=== PATIENT | male | born 1980 | race Caucasian/White ===

== ENCOUNTER 2020-04-12 08:55 | Emergency (ER) | payer SELFPAY ==
[~2020-04-12] VITALS: Ht 190 cm; Wt 77.9 kg
[2020-04-12] MEDS ORDERED: LACTATED RINGERS 1,000 ML IV ONE (09:26)
[2020-04-12 09:36] LABS: BASOPHILS % (AUTO) 0 % (0-10); EOSINOPHILS # (AUTO) 0.1 10^3/uL (0.0-0.3); EOSINOPHILS % (AUTO) 1 % (0-10); HEMATOCRIT 26 % (40-54); LYMPHOCYTES # (AUTO) 1.3 X 10^3 (1.0-4.0); LYMPHOCYTES % (AUTO) 12 % (12-44); MEAN CORPUSCULAR HEMOGLOBIN 24 PG (25-34); MEAN CORPUSCULAR HGB CONC 31 G/DL (32-36); MEAN CORPUSCULAR VOLUME 76 FL (80-99); MEAN PLATELET VOLUME 8.8 FL (7.4-10.4); MONOCYTES # (AUTO) 1.2 X 10^3 (0.0-1.0); MONOCYTES % (AUTO) 12 % (0-12); NEUTROPHILS # (AUTO) 8.2 X 10^3 (1.8-7.8); NEUTROPHILS % (AUTO) 76 % (42-75); PLATELET COUNT 354 10^3/uL (130-400); RED CELL DISTRIBUTION WIDTH 15.5 % (10.0-14.5); WHITE BLOOD COUNT 10.8 10^3/uL (4.3-11.0)
[2020-04-12 09:47] LABS: ALBUMIN 3.8 GM/DL (3.2-4.5); CHLORIDE 95 MMOL/L (98-107); POTASSIUM 3.4 MMOL/L (3.6-5.0); SODIUM 133 MMOL/L (135-145)
[2020-04-12 09:48] LABS: CALCIUM 8.7 MG/DL (8.5-10.1)
[2020-04-12 09:49] LABS: GLUCOSE 128 MG/DL (70-105); TOTAL PROTEIN 6.8 GM/DL (6.4-8.2)
[2020-04-12 09:51] LABS: BILIRUBIN,TOTAL 0.3 MG/DL (0.1-1.0); CARBON DIOXIDE 29 MMOL/L (21-32)
--- NOTE | 2020-04-12 09:52 | ED Abdominal Pain ---
General Chief Complaint: Abdominal/GI Problems Stated Complaint: CONSTIPATION Nursing Triage Note: PT CO OF CONSTIPATION FOR APPROX 3 DAYS, STATES HAS EPIGASTRIC PAIN RATES 8/10. PT STATES HAS TAKES DULCOLAX 2 DAYS AGO W NO RESULTS. STATES IS STILL PASSING GAS Sepsis Screen: No Definite Risk Source of Information: Patient Exam Limitations: No Limitations History of Present Illness Date Seen by Provider: April 12, 2020 Time Seen by Provider: 09:18 Initial Comments Here with report of upper abdominal pain and no bowel movement for the last 3 d ays. States he feels full up the top and burping. Reports passing some flatus but minimal. Has history of cholecystectomy and appendectomy. No report of recent injury. Denies blood in his stool. Tried Dulcolax a few days ago and had no results. Never had anything like this before. Reports pain is cramping. Timing/Duration: 3-4 Days Severity/Quality: Moderate, Cramping Location: Epigastric, Generalized Abdomen Radiation: No Radiation Activities at Onset: None Modifying Factors: Worsens With Eating, Worsens With Movement Associated Symptoms: No Back Pain, No Chest Pain, No Fever/Chills; Fatigue; No Nausea/Vomiting, No Shortness of Air; Swelling/Mass in Abdomen; No Weakness Allergies and Home Medications Allergies Coded Allergies: No Known Drug Allergies (Unverified , 04/12/20) Home Medications No Active Prescriptions or Reported Meds Patient Home Medication List Home Medication List Reviewed: Yes Review of Systems Review of Systems Constitutional: see HPI; No chills, No fever EENTM: No Symptoms Reported Respiratory: No Symptoms Reported Cardiovascular: No Symptoms Reported Gastrointestinal: Abdominal Pain, Constipated; Denies Nausea, Denies Vomiting Genitourinary: No Symptoms Reported Musculoskeletal: no symptoms reported Skin: no symptoms reported Psychiatric/Neurological: No Symptoms Reported Past Kqvdahs-Oaejyo-Snodgz Hx Past Med/Social Hx: Reviewed Nursing Past Med/Soc Hx Patient Social History Alcohol Use: Rarely Uses Recreational Drug Use: Yes (pot) Smoking Status: Current Everyday Smoker Type Used: Cigarettes Recent Foreign Travel: No Contact w/Someone Who Travel: No Recent Infectious Disease Expo: No Recent Hopitalizations: No Physical Abuse: No Sexual Abuse: No Seasonal Allergies Seasonal Allergies: No Past Medical History Surgeries: Yes Appendectomy, Gallbladder Respiratory: No Cardiac: No Neurological: No Genitourinary: No Gastrointestinal: No Musculoskeletal: No Endocrine: No HEENT: No Cancer: No Psychosocial: No Integumentary: No Family Medical History Reviewed Nursing Family Hx No Pertinent Family Hx Physical Exam Vital Signs Vital Signs - First Documented 04/12/20 09:00 Temp 36.6 Pulse 94 Resp 18 B/P (MAP) 149/78 (101) Pulse Ox 100 Capillary Refill : Less Than 3 Seconds Height/Weight/BMI Height: '" Weight: lbs. oz. kg; 21.00 BMI Method: General Appearance: WD/WN, no apparent distress Neck: full range of motion, supple Respiratory: lungs clear, normal breath sounds Cardiovascular: regular rate, rhythm, no murmur Gastrointestinal: tenderness (globally) Rectal: heme negative stool; No hemorrhoids, No mass, No tenderness; other (no stool ball noted in the distal rectum. Distal rectum completely empty.) Extremities: non-tender, normal inspection Back: normal inspection, no CVA tenderness, no vertebral tenderness Neurologic/Psychiatric: alert, oriented x 3 Skin: normal color, warm/dry Progress/Results/Core Measures Results/Orders Lab Results Laboratory Tests Test 04/12/20 09:30 Range/Units White Blood Count 10.8 4.3-11.0 10^3/uL Red Blood Count 3.36 L 4.35-5.85 10^6/uL Hemoglobin 8.0 L 13.3-17.7 G/DL Hematocrit 26 L 40-54 % Mean Corpuscular Volume 76 L 80-99 FL Mean Corpuscular Hemoglobin 24 L 25-34 PG Mean Corpuscular Hemoglobin Concent 31 L 32-36 G/DL Red Cell Distribution Width 15.5 H 10.0-14.5 % Platelet Count 354 130-400 10^3/uL Mean Platelet Volume 8.8 7.4-10.4 FL Neutrophils (%) (Auto) 76 H 42-75 % Lymphocytes (%) (Auto) 12 12-44 % Monocytes (%) (Auto) 12 0-12 % Eosinophils (%) (Auto) 1 0-10 % Basophils (%) (Auto) 0 0-10 % Neutrophils # (Auto) 8.2 H 1.8-7.8 X 10^3 Lymphocytes # (Auto) 1.3 1.0-4.0 X 10^3 Monocytes # (Auto) 1.2 H 0.0-1.0 X 10^3 Eosinophils # (Auto) 0.1 0.0-0.3 10^3/uL Basophils # (Auto) 0.0 0.0-0.1 10^3/uL Sodium Level 133 L 135-145 MMOL/L Potassium Level 3.4 L 3.6-5.0 MMOL/L Chloride Level 95 L 98-107 MMOL/L Carbon Dioxide Level 29 21-32 MMOL/L Anion Gap 9 5-14 MMOL/L Blood Urea Nitrogen 13 7-18 MG/DL Creatinine 0.83 0.60-1.30 MG/DL Estimat Glomerular Filtration Rate > 60 BUN/Creatinine Ratio 16 Glucose Level 128 H 70-105 MG/DL Calcium Level 8.7 8.5-10.1 MG/DL Corrected Calcium 8.9 8.5-10.1 MG/DL Magnesium Level 2.4 1.6-2.4 MG/DL Total Bilirubin 0.3 0.1-1.0 MG/DL Aspartate Amino Transf (AST/SGOT) 411 H 5-34 U/L Alanine Aminotransferase (ALT/SGPT) 262 H 0-55 U/L Alkaline Phosphatase 199 H 40-136 U/L C-Reactive Protein High Sensitivity 0.47 0.00-0.50 MG/DL Total Protein 6.8 6.4-8.2 GM/DL Albumin 3.8 3.2-4.5 GM/DL Lipase 29 8-78 U/L My Orders Orders - JAIDA GLEASON MD Cbc With Automated Diff (04/12/20 09:26) Comprehensive Metabolic Panel (04/12/20 09:26) Hs C Reactive Protein (04/12/20 09:26) Lipase (04/12/20 09:26) Magnesium (04/12/20 09:26) Ed Iv/Invasive Line Start (04/12/20 09:26) Lactated Ringers (Lr 1000 Ml Iv Solution (04/12/20 09:26) Ct Abdomen/Pelvis W (04/12/20 09:26) Iohexol Injection (Omnipaque 350 Mg/Ml 1 (04/12/20 10:00) Received Contrast (Hold Metformin- Contr (04/12/20 10:00) Ns (Ivpb) (Sodium Chloride 0.9% Ivpb Bag (04/12/20 10:00) Pantoprazole Injection (Protonix Injecti (04/12/20 10:46) Lidocaine 2% Viscous 15 Ml (Xylocaine Vi (04/12/20 11:00) Antacid Suspension (Mylanta Suspension (04/12/20 11:00) Medications Given in ED Current Medications Medications Dose Ordered Sig/Crystal Route Start Time Stop Time Status Last Admin Dose Admin Al Hydrox/Mg Hydrox/Simethicone 30 ml ONCE ONCE PO 04/12/20 11:00 04/12/20 11:01 DC 04/12/20 11:04 30 ML Iohexol 100 ml ONCE ONCE IV 04/12/20 10:00 04/12/20 10:01 DC 04/12/20 10:03 98 ML Lactated Ringer's 1,000 ml @ 0 mls/hr Q0M ONCE IV 04/12/20 09:26 04/12/20 09:29 DC 04/12/20 09:34 1,000 MLS/HR Lidocaine HCl 15 ml ONCE ONCE PO 04/12/20 11:00 04/12/20 11:01 DC 04/12/20 11:04 15 ML Pantoprazole 40 mg STK-MED ONCE .ROUTE 04/12/20 10:46 04/12/20 10:53 DC 04/12/20 10:55 40 MG Sodium Chloride 100 ml ONCE ONCE IV 04/12/20 10:00 04/12/20 10:01 DC 04/12/20 10:04 80 ML Vital Signs/I&O 04/12/20 09:00 Temp 36.6 Pulse 94 Resp 18 B/P (MAP) 149/78 (101) Pulse Ox 100 Blood Pressure Mean: 101 Fecal Occult: Negative Progress Progress Note : Progress Note Seen and evaluated. Initially considered just doing x-ray but story is more concerning and no stool ball noted and distal rectum. We will DC x-ray and moved to labs and CT abdomen and pelvis. LR 1 L bolus. Monitor patient. 1107: CT complete. Findings of esophagitis and concerns of ileus noted. No obvious mass. I did discuss the case with Dr. Blount and we had intended on admitting the patient with possible upper and lower endoscopy to follow. Patient initially was accepting but then declined admission. Apparently his daughters mother was recently killed in a car accident a few days ago and his daughter is with him. He does admit to chewing tobacco and swallowing. This may be the cause of the esophagitis and stomach irritation. That is the cause of his low hemoglobin. That being said that there is still concerns for possible cancer risk and he needs endoscopy to evaluate for more persistent bleeding. Since he does not want to stay, he will sign AMA paperwork but I did discuss all of this with Dr. Blount. We will initiate clear liquid diet as well as omeprazole OTC and sucralfate prescription. He was instructed to follow-up with Dr. Blount in clinic on Tuesday or Tuesday and clear liquid diet for the next 3 days. He was also instructed to return for any concerns. I did discuss my concerns with him with regard to low hemoglobin and concerns for cancer as a possible diagnosis. Patient verbalize understanding. He was appreciative of care but states right now he just cannot stay due to the other factors in his life relating to his daughter. He was given Protonix 40 mg IV and GI cocktail. It did discuss at length with him regarding discharge instructions which he verbalized understan ding of. Patient states he will return if he gets any worse at all or if he just changes his mind. Diagnostic Imaging Diagonstic Imaging: CT Plain Films/CT/US/NM/MRI: abdomen, pelvis Comments [facility] [place], [place] NAME: AUSTIN BRENNAN [facility] REC#: [id number] PT STATUS: REG ER : 1980 PHYSICIAN: JAIDA GLEASON MD ADMIT DATE: 04/12/20/ER Draft Date of Exam:04/12/20 CT ABDOMEN/PELVIS W PROCEDURE: CT abdomen and pelvis with contrast. TECHNIQUE: Multiple contiguous axial images were obtained through the abdomen and pelvis after administration of intravenous contrast. Auto Exposure Controls were utilized during the CT exam to meet ALARA standards for radiation dose reduction. INDICATION: Abdominal pain, constipation, and epigastric pain. COMPARISON: None FINDINGS: The lung bases are clear. There is abnormal thickening of the visualized distal esophagus which could represent reflux disease. Moderate constipation is present without overt obstruction. Nonspecific fluid-filled loops of small bowel are present which could be seen with enteritis. Prominent small bowel loops are seen in the left upper quadrant possibly ileus. Please correct clinically. The gallbladder and appendix are surgically absent. Solid organs and vascular structures are normal. There is no free air or free fluid. Distal ureters and urinary bladder are normal. There is no hernia. Osseous structures are age-appropriate. IMPRESSION: 1. Abnormal thickening of the visualized distal esophagus. Direct visualization recommended on a nonemergent basis. 2. Surgically absent gallbladder and appendix. 3. Constipation without overt obstruction. 4. Nonspecific fluid-filled loops of small bowel which may be seen with enteritis. Questionable left upper quadrant small bowel ileus. Please correlate clinically. Dictated on workstation # [id number] Dict: 04/12/20 1018 Trans: 04/12/20 1025 [facility] [id number] Interpreted by: ERINN MEAD Electronically signed by: Departure Impression Primary Impression: Upper abdominal pain Additional Impressions: Esophagitis Anemia Qualified Codes: D64.9 - Anemia, unspecified Ileus GI bleed Qualified Codes: K92.2 - Gastrointestinal hemorrhage, unspecified Disposition: 01 HOME, SELF-CARE Condition: Against Medical Advice Departure-Patient Inst. Decision time for Depature: 11:11 Referrals: KIT BLOUNT,LOCAL PHYSICIAN (PCP) Primary Care Physician [facility] Patient Instructions: Acute Abdomen (Belly Pain), Adult (DC), Gastrointestinal Bleeding (DC) Add. Discharge Instructions: All discharge instructions reviewed with patient and/or family. Voiced unde rstanding. You are leaving AGAINST MEDICAL ADVICE. Please return for any concerns. You should initiate [id number] omeprazole 20 mg 2 tablet daily for the next 4 to 8 weeks and then per doctor instructions. You should take medications as directed. Initiate clear liquid diet for the next 2-[address] Blount's office on Tuesday morning for appointment on Tuesday or Tuesday. Establish care with [facility]. Return for worse pain, vomiting, weakness, blood in your vomit or stool or other concerns as needed. You need to stop chewing tobacco immediately. Scripts Sucralfate (Sucralfate) 1 Gm Tablet 1 GM PO ACHS, #56 TAB 1 Refill Chew tablet to a slurry and then swallow Prov: JAIDA GLEASON MD 04/12/20 Copy Copies To 1: KIT BLOUNT TIMOTHY D MD April 12, 2020 09:52
[2020-04-12 09:53] LABS: ALKALINE PHOSPHATASE 199 U/L (40-136); CREATININE SERUM 0.83 MG/DL (0.60-1.30); GFR ESTIMATED > 60
[2020-04-12 09:54] LABS: BUN/CREATININE RATIO 16
[2020-04-12 09:56] LABS: ALANINE AMINOTRANSFERASE 262 U/L (0-55); MAGNESIUM 2.4 MG/DL (1.6-2.4)
[2020-04-12 09:57] LABS: LIPASE 29 U/L (8-78)
[2020-04-12] MEDS ORDERED: NS 100 ML (IVPB) BAG IV ONE (10:00)
[2020-04-12] MEDS ORDERED: IOHEXOL 350 MG/ML 100 ML (OMNIPAQUE 350) VIAL IV ONE (10:00)
[2020-04-12] MEDS ORDERED: HOLD METFORMIN - RECEIVED CONTRAST 20 ML VIAL IV SCH (10:00)
--- NOTE | 2020-04-12 10:26 | Diagnostic Imaging Report ---
PROCEDURE: CT abdomen and pelvis with contrast. TECHNIQUE: Multiple contiguous axial images were obtained through the abdomen and pelvis after administration of intravenous contrast. Auto Exposure Controls were utilized during the CT exam to meet ALARA standards for radiation dose reduction. INDICATION: Abdominal pain, constipation, and epigastric pain. COMPARISON: None FINDINGS: The lung bases are clear. There is abnormal thickening of the visualized distal esophagus which could represent reflux disease. Moderate constipation is present without overt obstruction. Nonspecific fluid-filled loops of small bowel are present which could be seen with enteritis. Prominent small bowel loops are seen in the left upper quadrant possibly ileus. Please correct clinically. The gallbladder and appendix are surgically absent. Solid organs and vascular structures are normal. There is no free air or free fluid. Distal ureters and urinary bladder are normal. There is no hernia. Osseous structures are age-appropriate. IMPRESSION: 1. Abnormal thickening of the visualized distal esophagus. Direct visualization recommended on a nonemergent basis. 2. Surgically absent gallbladder and appendix. 3. Constipation without overt obstruction. 4. Nonspecific fluid-filled loops of small bowel which may be seen with enteritis. Questionable left upper quadrant small bowel ileus. Please correlate clinically. Dictated by: Dictated on workstation # [id number]
[2020-04-12] MEDS ORDERED: PANTOPRAZOLE 40 MG (PROTONIX) VIAL ONE (10:46)
[2020-04-12] MEDS ORDERED: ANTACID SUSP 30 ML UDC (MYLANTA) PO ONE (11:00)
[2020-04-12] MEDS ORDERED: LIDOCAINE 2% VISCOUS 15 ML UDC PO ONE (11:00)
--- NOTE | 2020-04-12 11:00 | NUR ---
DR WANTING PT TO STAY FOR FURTHER FOLLOWUP, PT STATES NEEDS TO GO HOME AND COME BACK LATER D/T RECENT IN FAMILY. STATES WILL FOLLOW UP BUT NOT TODAY. SPOKE AT LENGTH W PT CO TEST RESULTS AND FOLLOWUP CARE
[2020-04-12] MEDS ORDERED: SUCR1TAB PO (11:17)
[2020-04-12 11:22] VITALS: BP 149/78
== END 2020-04-12 11:22 | disposition home or self-care (01) ==
LOC: EDUNIT# 08:55 → ER 08:57
DX: K20.9 Esophagitis, unspecified (principal); D64.9 Anemia, unspecified; K56.7 Ileus, unspecified; K92.2 Gastrointestinal hemorrhage, unspecified; F17.210 Nicotine dependence, cigarettes, uncomplicated; Z90.49 Acquired absence of other specified parts of digestive tract
CPT/HCPCS: 36415; 74177; 80053; 82274; 83690; 83735; 85025; 86141